=== PATIENT | male | born 1980 | race Caucasian/White ===

== ENCOUNTER 2017-04-25 10:25 | Emergency (ER) | payer BC ==
[~2017-04-25] VITALS: Ht 170.2 cm; Wt 77.1 kg
[~2017-04-25 10:25] MED LIST: AZITHROMYCIN250 MG PO; BACTRIM DS TAB1 EACH PO; CEPHALEXIN500 MG PO; CLARITIN10 MG PO; DAY-TIME COLD-1 EACH PO; ERYTHROMYCIN3.5 GM OD; GUAIFENESIN-CO118 ML PO; IBUPROFEN200 MG PO; IBUPROFEN600 MG PO; LOPRESSOR50 MG PO; MICONAZOLE NITR30 GM TOP; NORCO 5-325 TA1 EACH PO; NYQUIL D COLD295 ML PO; ONCE DAILY1 EACH PO; PERCOCET 5-3251 EACH PO; PRILOSEC20 MG PO
[2017-04-25] MEDS ORDERED: MULTIVITAMINS1 EAC7 PO (10:34)
[2017-04-25] MEDS ORDERED: PRILOSEC OTC20 MG PO (10:34)
[2017-04-25] MEDS ORDERED: ZITHROMAX250 MG PO (10:57)
[2017-04-25] MEDS ORDERED: KETOROLAC TROME10 MG PO (10:57)
== END 2017-04-25 11:05 | disposition home or self-care (01) ==
LOC: ED 10:25
PROC: 0R9L3ZX Drainage of Right Elbow Joint, Percutaneous Approach, Diagnostic (ICD-10-PCS; principal; 2017-04-25)
DX: M70.31 Other bursitis of elbow, right elbow (principal); F17.200 Nicotine dependence, unspecified, uncomplicated; Z79.899 Other long term (current) drug therapy
CPT/HCPCS: 20605; 99283

== ENCOUNTER 2017-04-26 08:40 | Emergency (ER) | payer BC ==
[~2017-04-26] VITALS: Ht 170.2 cm; Wt 77.1 kg
[~2017-04-26 08:40] MED LIST changes: +KETOROLAC TROME10 MG PO; +MULTIVITAMINS1 EAC7 PO; +PRILOSEC OTC20 MG PO; +ZITHROMAX250 MG PO
== END 2017-04-26 08:59 | disposition home or self-care (01) ==
LOC: ED 08:40
DX: Z00.8 Encounter for other general examination (principal)

== ENCOUNTER 2018-04-21 16:01 | Emergency (ER) | payer BC ==
[~2018-04-21 16:01] MED LIST changes: +NORCO 7.5-3251 EACH PO; +PENICILLIN V P500 MG PO
== END 2018-04-21 16:10 | disposition left against medical advice (07) ==
LOC: ED 16:01
DX: Z53.21 Procedure and treatment not carried out due to patient leaving prior to being seen by health care provider (principal)

== ENCOUNTER 2020-08-15 00:01 | Emergency (ER) | payer BC ==
[~2020-08-15] VITALS: Ht 170.2 cm; Wt 76.3 kg
--- OUTSIDE RECORDS SUMMARY | 2020-08-15 00:02 | XMS ---
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 Care History Medical/Surgical 04/25/2018 [facility] - Patient is currently established with [facility]. If patient is seen in the ED during business hours. Please contact CHWs at [facility]. Care Recommendation: This patient has had 5 or more Emergency Department visits in the last 12 months.\T\nbsp; Patient requires education on the scope and purpose of the ED as an acute care provider not a Primary Care Provider and should not be utilized for chronic conditions.\T\nbsp; These are guidelines and the provider should exercise clinical judgment when providing care. 03/28/2018 [facility] PATIENT GIVEN NORCO 7.5-325 #10 TABS FOR DENTAL PAIN 03/24/18.\T\nbsp; PATIENT STATES HE HAS DENTIST APPOINTMENT IN FOUR DAYS.\T\nbsp; USE CAUTION WITH NARCOTICS.\T\nbsp; E.D. VISIT COUNT (12 MO.) 1 CRISTI Archer TOTAL 1 NOTE: Visits indicate total known visits. ED/UCC VISIT TRACKING (12 MO.) 08/15/2020 00:01 CRISTI Calderon [place] TYPE: Emergency COMPLAINT: - EYE PROBLEM INPATIENT VISIT TRACKING (12 MO.) No inpatient visits to display in this time frame [email or web address]
[2020-08-15] MEDS ORDERED: NORCO 5-325 TA1 EACH PO (01:33)
== END 2020-08-15 02:00 | disposition home or self-care (01) ==
LOC: ED 00:01
DX: S05.02XA Injury of conjunctiva and corneal abrasion without foreign body, left eye, initial encounter (principal); X58.XXXA Exposure to other specified factors, initial encounter; F17.200 Nicotine dependence, unspecified, uncomplicated; Z79.899 Other long term (current) drug therapy
CPT/HCPCS: 99283

== ENCOUNTER 2020-11-26 18:07 | Emergency (ER) | payer OTHER, BC ==
[~2020-11-26] VITALS: Ht 170.2 cm; Wt 74.8 kg
--- OUTSIDE RECORDS SUMMARY | 2020-11-26 18:12 | XMS ---
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 Care History Medical/Surgical 04/25/2018 [facility] - Patient is currently established with [facility]. If patient is seen in the ED during business hours. Please contact CHWs at [facility]. Care Recommendation: This patient has had 5 or more Emergency Department visits in the last 12 months.\T\nbsp; Patient requires education on the scope and purpose of the ED as an acute care provider not a Primary Care Provider and should not be utilized for chronic conditions.\T\nbsp; These are guidelines and the provider should exercise clinical judgment when providing care. 03/28/2018 [facility] PATIENT GIVEN NORCO 7.5-325 #10 TABS FOR DENTAL PAIN 03/24/18.\T\nbsp; PATIENT STATES HE HAS DENTIST APPOINTMENT IN FOUR DAYS.\T\nbsp; USE CAUTION WITH NARCOTICS.\T\nbsp; E.D. VISIT COUNT (12 MO.) [address] [facility] TOTAL 2 NOTE: Visits indicate total known visits. 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
== END 2020-11-26 20:39 | disposition home or self-care (01) ==
LOC: ED 18:07
DX: S80.12XA Contusion of left lower leg, initial encounter (principal); Y99.0 Civilian activity done for income or pay; X58.XXXA Exposure to other specified factors, initial encounter; F17.200 Nicotine dependence, unspecified, uncomplicated
CPT/HCPCS: 99283

== ENCOUNTER 2021-12-08 07:09 | Emergency (ER) | payer OTHER, BC ==
[~2021-12-08] VITALS: Ht 170.2 cm; Wt 74.8 kg
--- OUTSIDE RECORDS SUMMARY | 2021-12-08 07:16 | XMS ---
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 Care History Medical/Surgical 04/25/2018 [facility] - Patient is currently established with [facility]. If patient is seen in the ED during business hours. Please contact CHWs at [facility]. Care Recommendation: This patient has had 5 or more Emergency Department visits in the last 12 months.\T\nbsp; Patient requires education on the scope and purpose of the ED as an acute care provider not a Primary Care Provider and should not be utilized for chronic conditions.\T\nbsp; These are guidelines and the provider should exercise clinical judgment when providing care. 03/28/2018 [facility] PATIENT GIVEN NORCO 7.5-325 #10 TABS FOR DENTAL PAIN 03/24/18.\T\nbsp; PATIENT STATES HE HAS DENTIST APPOINTMENT IN FOUR DAYS.\T\nbsp; USE CAUTION WITH NARCOTICS.\T\nbsp; E.D. VISIT COUNT (12 MO.) 1 CRISTI Archer TOTAL 1 NOTE: Visits indicate total known visits. ED/UCC VISIT TRACKING (12 MO.) 12/08/2021 07:10 CRISTI Calderon [place] TYPE: Emergency COMPLAINT: - L INDEX FINGER LACERATION/INJURY INPATIENT VISIT TRACKING (12 MO.) No inpatient visits to display in this time frame [email or web address]
[2021-12-08] MEDS ORDERED: LISINOPRIL10 MG PO (07:36)
[2021-12-08] MEDS ORDERED: OMEPRAZOLE20 MG PO (07:36)
== END 2021-12-08 08:40 | disposition home or self-care (01) ==
LOC: ED 07:09
DX: S61.211A Laceration without foreign body of left index finger without damage to nail, initial encounter (principal); Y99.0 Civilian activity done for income or pay; I10 Essential (primary) hypertension; F17.200 Nicotine dependence, unspecified, uncomplicated; Z79.899 Other long term (current) drug therapy
CPT/HCPCS: 12001; 99282-25

== ENCOUNTER 2022-10-10 13:53 | Inpatient (IN) | payer OTHER ==
[~2022-10-10] VITALS: Ht 170.2 cm; Wt 70.0 kg
[~2022-10-10 13:53] MED LIST changes: +LISINOPRIL10 MG PO; +PEPCID40 MG PO
--- OUTSIDE RECORDS SUMMARY | 2022-10-10 14:00 | XMS ---
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 Care History Medical/Surgical 04/25/2018 [facility] - Patient is currently established with [facility]. If patient is seen in the ED during business hours. Please contact CHWs at [facility]. Care Recommendation: This patient has had 5 or more Emergency Department visits in the last 12 months.\T\nbsp; Patient requires education on the scope and purpose of the ED as an acute care provider not a Primary Care Provider and should not be utilized for chronic conditions.\T\nbsp; These are guidelines and the provider should exercise clinical judgment when providing care. 03/28/2018 [facility] PATIENT GIVEN NORCO 7.5-325 #10 TABS FOR DENTAL PAIN 03/24/18.\T\nbsp; PATIENT STATES HE HAS DENTIST APPOINTMENT IN FOUR DAYS.\T\nbsp; USE CAUTION WITH NARCOTICS.\T\nbsp; E.D. VISIT COUNT (12 MO.) [address] [facility] TOTAL 2 NOTE: Visits indicate total known visits. ED/UCC VISIT TRACKING (12 MO.) 10/10/2022 13:53 CRISTI Calderon [place] TYPE: Emergency COMPLAINT: - ABDOMINAL PAIN 12/08/2021 07:10 CRISTI Calderon [place] TYPE: Emergency COMPLAINT: - L INDEX FINGER LACERATION/INJURY DIAGNOSES: - Other alf (current) drug therapy - Laceration without foreign body of left index finger without damage to nail, initial encounter - Nicotine dependence, unspecified, uncomplicated - Civilian activity done for income or pay - Essential (primary) hypertension INPATIENT VISIT TRACKING (12 MO.) No inpatient visits to display in this time frame [email or web address]
--- NOTE | 2022-10-10 22:08 | NUR ---
PT DIRECT ADMIT FROM ED. PT BROUGHT IN BY ED AMRIK WITH ED NURSE PRESENT. PT ABLE TO STAND AND TRANSFER TO ICU BED WITHOUT ASSISTANCE. FULL PT REPORT OBTAINED, AND TWO RN SKIN CHECK PERFORMED WITH JOE LEAL RN. PT RESTING COMFORTABLY AT THIS TIME. PT DENIES ANY PAIN, SOB, N/V, SIMEON, VISUAL OR AUDITORIAL HALLUCINATIONS, OR ANY ABNORMAL SENSATIONS. V/S ASSESSED, ALARM LIMITS SET, BED ALARM TURNED ON AND NURSE CALL LIGHT LEFT BY PTS SIDE.
--- NOTE | 2022-10-10 22:10 | EKG ---
[facility] [address] [place] [address] Signed Sinus tachycardia Left axis deviation Inferior infarct , age undetermined Cannot rule out Anterior infarct , age undetermined Abnormal ECG No previous ECGs available Confirmed by Pepito uMrray MD () on 10/10/2022 10:10:12 PM Electronically Signed By: PEPITO MURRAY MD 10/10/222209 PATIENT NAME: HERNAN GONSALES Electrocardiogram DATE OF : 76 PHYSICIAN: PEPITO MURRAY MD REPORT #: [id number] REPORT IS CONFIDENTIAL AND NOT TO BE RELEASED WITHOUT AUTHORIZATION
--- NOTE | 2022-10-11 06:59 | NUR ---
PT REMAINS AWAKE, ALERT AND ORIENTED WITH A GCS OF 15. PT FOLLOWS COMMANDS AND MOVES ALL FOUR EXTREMITIES WITH PURPOSE. PT HAS BEEN IN A NSR, NORMOTENSIVE AND A-FEBRILE THROUGHOUT THE SHIFT. PT CONTINUES TO SCORE LOW ON CIWA. PT WITH R. SIDED ABDOMENAL PAIN, SCORING AN 8 OUT OF 10. PRN MEDICATION ADMINISTERED FOR PAIN AND ANXIETY. LABS: AST/ALT CONTINUE TO BE ELEVATED. LIPASE 41. CA19-9 PENDING.
--- NOTE | 2022-10-11 07:50 | NUR ---
REPORT RECEIVED FROM NIGHT RN - PT RESTING IN BED ON SIDE, RR EVEN AND UNLABORED. VS STABLE ON MONITOR. CALL LIGHT IN REACH.
--- NOTE | 2022-10-11 08:25 | NUR ---
0800 vs stable - pt remains asleep in bed. call light at side.
--- NOTE | 2022-10-11 08:57 | NUR ---
RN IN ROOM TO ATTEND TO IV ALARM. PT WAKES EASILY, BUT DROWSY. DENIES NEEDS AT THIS TIME.
--- NOTE | 2022-10-11 09:15 | NUR ---
Spoke with Enmanuel. He states he lives in [place] with his , 2 kids, and mother in law. is Rebecca Jiang. Pt states concern as he is on a 2 month lay off from [employer]. Today would have been his first day back to work. He states he father recently and he has been very depressed and has lost 20 pounds. He states he has not sought counseling for his depression, but did in the past for his alcohol dependence. I asked if he would like assistance with alcohol or depression. He declines at this time and states he cannot at this time. He does say his anxiety is through the roof and his mom causes a scene last night which worsened his anxiety. Dr. Correa was in the room when I arrived and stated pt will be here at least another day. Pt is jaundiced. Discussed with pt, I will see him tomorrow. If at any time he wants help with alcohol dependence, depression, or anxiety I can help him with resources. Pt plans on dc to home with his and family when he discharges.
--- NOTE | 2022-10-11 09:25 | NUR ---
SURGEON AND CASE MANAGMENT ROUNDING IN ROOM
--- NOTE | 2022-10-11 10:16 | NUR ---
RN IN ROOM TO ASSESS PT - PT REQUESTS TO AMBULATE TO BATHROOM TO VOID, STEADY ON FEET BUT TREMOR NOTED IN UPPER EXTREMETIES WITH DIAPHORESIS AND HEADACHE. CIWA SCORE OF 9, PRN VALIUM ADMINISTERED FOR THIS. PT ALSO REPORTS 8/10 PAIN IN RIGHT UPPER QUADRANT, PRN PAIN MEDICATION ALSO ADMINISTERED. URINE NOTED TO BE ORANGE AND FROTHY, SKIN REMAINS JAUNDICE. PT EDUCATED ON ETOH WITHDRAWL SX AND MEDICATIONS TO PREVENT HARM. PT MOTIVATED TO IMPROVE HEALTH. TEARFUL WHEN TALKING ABOUT FATHER WHO RECENTLY PASSED. CONSENT FOR EGD SIGNED AND PLACED ON CHART.
--- NOTE | 2022-10-11 11:19 | NUR ---
RN IN ROOM TO ROUND ON PT - RESTING IN BED WATCHING TV WITHOUT SIGNS OF DISTRESS, NO VISIBLE TREMORS NOTED AND VOICE CALM AND COHERANT. PT DENIES NEEDS AT THIS TIME. STATES PAIN IS IMPROVED.
--- NOTE | 2022-10-11 11:55 | NUR ---
RN IN ROOM TO ROUND ON PT - PT REPORTS BEING ANXIOUS ABOUT PROCEDURE LATER TODAY. CIWA SCORE IMPROVED, HOWEVER SELF REPORT OF ANXIETY REMAINS HIGH. PRN ATIVAN ADMINISTERED. PT DENIES FURTHER NEEDS. CALL LIGHT IN REACH.
--- NOTE | 2022-10-11 12:54 | NUR ---
PT RESTING WITH EYES CLOSED IN BED, RR EVEN AND UNLABORED. VS WNL ON MONITOR. CALL LIGHT AT SIDE.
--- NOTE | 2022-10-11 14:28 | NUR ---
RN IN ROOM TO ROUND ON PT - PT REPORTING 9/10 PAIN AND SEVERE ANXIETY. PRN ADMINITERED FOR BOTH, CIWA SCORE 9. VS REMAIN WNL. ASSESSMENT UNCHANGED FROM PREVIOUS. CONTINUED CONVERSATION AND EDUCATION WITH PT REGARDING ETOH WITHDRAWL AND RECOVERY. PT TEARFUL AND EXPRESSESS STRONG DESIRE TO STOP DRINKING. 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
--- NOTE | 2022-10-11 15:47 | NUR ---
Pt visiting with family at bedside.
--- NOTE | 2022-10-11 16:38 | NUR ---
PT BACK TO ROOM FROM OR - OR STAFF IN ROOM RECOVERING PT.
--- NOTE | 2022-10-11 17:01 | NUR ---
10/11/22 1701 Rebecca Goodwin 1630 PT ARRIVED IN PACU NON RESPONSIVE TO NOXIOUS STIMULI WITH OPA IN PLACE. 4 PERSON ASSIST TO TRANSFER PT FROM STRETCHER TO BED WITH CHIN LIFT HELD BY RN. 1645 REPOSITIONED PT TO KEEP AIRWAY OPEN WITH OPA. NO RESPONSE TO NOXIOUS STIMULI. 1700 NO CHANGE IN PT STATUS.
--- NOTE | 2022-10-11 17:23 | NUR ---
medications reconciled PCP chart notes
--- NOTE | 2022-10-11 17:25 | NUR ---
RESUMING CARE OF PT - RESTING IN BED ON BACK WITH HOB ELEVATED. SPO2 STABLE ON ROOM AIR. RR 22 AND UNLABORED. DOOR OPEN AND IN DIRECT SITE OF RN STATION.
--- NOTE | 2022-10-11 18:02 | NUR ---
PT REMAINS RESTING IN BED ASLEEP, HOB ELEVATED. NO SIGNS OF RESPIRATORY DISTRESS, VS WNL ON MONITOR. WITHIN DIRECT VIEW OF RN STATION.
--- NOTE | 2022-10-12 00:56 | NUR ---
CALLED WITH EKG RESULTS AFTER RHYTHM CHANGE ON MONITOR, ALSO BRADYCARDIA 50-60/MIN. CONTINUE TO MONITOR. NO NEW ORDERS AT THIS TIME.
--- NOTE | 2022-10-12 06:55 | NUR ---
PT REMAINS AWAKE, ALERT AND ORIENTED WITH A GCS OF 15. PT MOVES ALL FOUR EXTREMITIES, CMS INTACT X 4. PT HAS BEEN IN A NSR TO SB, NORMOTENSIVE AND A-FEBRILE. LS CLEAR, PT REMAINS ON RA. PT CONTINUES TO HAVE R. SIDED ABDOMINAL PAIN IN THE UPPER AND LOWER QUADRANT. PT REQUIRED MULTIPLE PRNS FOR PAIN MANAGEMENT. PT WITH INCREASED LEVELS OF ANXIETY THROUGHOUT THE NIGHT. PRN ATIVAN ADMINISTERED WITH IMPROVEMENT. CIWA NOTED TO BE ELEVATED AROUND 0600. PRN DIAZEPAM ADMINSTERED. LABS: PLT COUNT LOW AT 97. ALT/AST IMPROVED. TOTAL BILI RAISED TO 11.2.
--- NOTE | 2022-10-12 07:30 | NUR ---
REPORT RECIEVED. PATIENT IS AWAKE LAYING IN BED WATCHING TV. IVF INFUSING.
--- NOTE | 2022-10-12 08:00 | NUR ---
ASSESSMENT DONE. PATIENT C/O HEADACHE,RIGHT SIDE ABD PAIN, WITH DIFFUSE ABD DISCOMFORT WITH PALPATION. HAS BEEN NPO SINCE MIDNIGHT. ORAL CARE GIVEN. DENIES NAUSEA. DILAUDID 1 MG IV GIVEN FOR PAIN 10, ATIVAN 1 MG IV GIVEN FOR ANXIETY. PATIENT IS COOPERATIVE AND AWAKE OF POC FOR THE DAY.
--- NOTE | 2022-10-12 10:39 | OR ---
[facility] [address] [place], [place] [address] Signed DATE OF OPERATION: 10/11/2022 SURGEON: Carlos Navas MD PREOPERATIVE DIAGNOSES: 1. Jaundice without evidence of gallstones or dilated common bile duct. 2. Thickening of the gallbladder. 3. Chronic alcoholism. POSTOPERATIVE DIAGNOSES: Diffuse gastritis. No evidence of ampullary neoplasm. PROCEDURE: Esophagogastroduodenoscopy with biopsy. ANESTHESIA: Carlos Hurt CRNA (General). INDICATIONS: This 41-year-old man presented to the emergency room yesterday with diffuse abdominal pain and a deep jaundice with bilirubin greater than 9 and alkaline phosphatase quite elevated as well. He has chronic alcoholism and does have a prior history of alcohol withdrawal syndrome apparently. He was admitted by Dr. Negro for further evaluation as a CT scan initially performed showed thickening of the gallbladder wall, but no sign of intrahepatic ductal dilatation. There was no evidence of pancreatic neoplasm nor any sign of double duct sign. An ultrasound was performed showing no evidence of gallstones nor common duct dilation either. His liver enzymes are only slightly improved today, now bilirubin to 7, alkaline phosphatase too decreased as well. He remains deeply jaundiced as would be expected. Consideration is made for the possibility of an ampullary neoplasm accounting for his obstructive jaundice as he does not have profound abdominal pain, though consideration for chronic cholecystitis and biliary obstruction related to stone or debris is still a possibility. He understands the risks of bleeding, infection, perforation related upper endoscopy and wished to proceed. FINDINGS: There was no ampulla that had neoplasm. A very tiny ampulla was noted. There was no sign of duodenitis. He did have diffuse gastritis, probably related to his ongoing alcohol use. CLOtest was negative. Esophagus was normal. There were no varices. DESCRIPTION OF PROCEDURE: Electronically Signed By: CARLOS NAVAS MD 10/12/22 1039 PATIENT NAME: HERNAN GONSALES OPERATIVE REPORT DATE OF : 76 REPORT #: [id number] PHYSICIAN: CARLOS NAVAS MD PCP: MICK JEFFERSON MD REPORT IS CONFIDENTIAL AND NOT TO BE RELEASED WITHOUT AUTHORIZATION [facility] [address] [place], [place] [address] Signed The patient was brought to the endoscopy suite, given a general endotracheal anesthetic, after the discretion of the anesthesia provider based on his underlying alcoholism and anxiety prior to the procedure. A safe intubation was accomplished without problem. A bite block was placed. He was allowed to remain in the supine position. An Olympus video upper endoscope was passed in the hypopharynx. The hypopharyngeal tissue was normal. Scope was easily passed in the esophagus, which was normal throughout. The scope was passed to the stomach, which was insufflated with air. Rugal folds appeared normal. He had diffuse gastritis without sign of ulceration or erosion. The pylorus was normal. Scope was passed into the duodenum. Multiple passes were made throughout the 2nd and 3rd portions of the duodenum to assess for neoplastic change of the ampulla. Mindful that this is a forward-looking scope rather than a side-viewing J scope, some difficulty was encountered actually locating the ampulla, but ultimately it appeared quite small in configuration. The scope was then withdrawn from the stomach. Biopsies were taken of the stomach on the basis of his chronic gastritis. This included a CLOtest. Retroflexed view showed a reasonably good flap valve. The scope was withdrawn to the esophagus. There was no sign of inflammation there. There were no varices throughout any portion of the esophagus. The scope was removed. CONCLUDING DIAGNOSIS: No evidence of ampullary neoplasm to account for his jaundice in the setting of minimal pain and lack of common bile duct dilation. PLAN: We will review with Dr. Negro, however, he may yet require cholecystectomy with cholangiogram. I reviewed the films available, which include CT scan and ultrasound, when and if a radiologist is available to do so in the current area. MD SHRADDHA Ga/MODL /[id number] cc: MD PEPITO Scott MD Electronically Signed By: CARLOS NAVAS MD 10/12/22 1039 PATIENT NAME: HERNAN GONSALES OPERATIVE REPORT DATE OF : 76 REPORT #: [id number] PHYSICIAN: CARLOS NAVAS MD PCP: MICK JEFFERSON MD REPORT IS CONFIDENTIAL AND NOT TO BE RELEASED WITHOUT AUTHORIZATION [facility] [address] [place] [address] Signed Copies: ~ Electronically Signed By: CARLOS NAVAS MD 10/12/22 1039 PATIENT NAME: HERNAN GONSALES OPERATIVE REPORT DATE OF : [birth year] REPORT #: [id number] PHYSICIAN: CARLOS NAVAS MD PCP: MICK JEFFERSON MD REPORT IS CONFIDENTIAL AND NOT TO BE RELEASED WITHOUT AUTHORIZATION
--- NOTE | 2022-10-12 10:40 | NUR ---
CWIA 10, VALIUM 5 MG IV GIVEN.
--- NOTE | 2022-10-12 12:15 | NUR ---
ASSESSMENT UNCHANGED. TO BR TO VOID, WITH ACTIVITY, HR UP 140. DENEIS DIZZINESS. BACK TO BED W/O INCIDENT. IS STABLE ON FEET.
--- NOTE | 2022-10-12 12:20 | NUR ---
REMAINS ANXIOUS AND PAINFUL. RATES PAIN 8/10. DILAUDID 1 MG IV GIVEN FOLLOWED BY ATIVAN 1 MG. WILL HAVE MRI TODAY AT 1 PM TODAY. PATIENT IS AWARE.
--- NOTE | 2022-10-12 13:00 | NUR ---
VALIUM 5 MG IV GIVEN PRIOR TO GOING TO MRI.
--- NOTE | 2022-10-12 13:05 | NUR ---
TO MRI VIA WC.
--- NOTE | 2022-10-12 14:10 | NUR ---
RETURN TO ROOM 128 VIA W/C FROM MRI. PATIENT VERY TENSE, C/O PAIN RATES 9/10. DILAUDID 1 MG IV GIVEN. TELE #6 APPLIED. CONTINUES WITH TACHYCARDIA UPON EXERTION. IVF NOW INFUSING.
--- NOTE | 2022-10-12 15:45 | NUR ---
DR. MURRAY AND DR. NAVAS'S OFFICE AWARE MRI RESULTS ARE BACK.
--- NOTE | 2022-10-12 18:07 | NUR ---
OKAY TO GIVE CLEAR LIQUIDS PER DR. NAVAS'S ORDER.
--- NOTE | 2022-10-12 20:00 | NUR ---
PT ASSESSED, AND V/S OBTAINED. PT IS A&O X 4 WITH A GCS OF 15. PT FOLLOWS COMMANDS APPROPRIATELY. PT MOVES ALL EXTREMITIES, CMS INTACT X 4. CIWA ASSESSED. PT NOTED TO BE ANXIOUS. NURSE CALL LIGHT AT BEDSIDE. PT WITH NO NEEDS OR CONCERNS AT THIS TIME.
--- NOTE | 2022-10-12 20:49 | CONS ---
[facility] [address], [place] [address] Signed DATE OF CONSULTATION: 10/10/2022 TIME: 10:45 p.m. REQUESTING PHYSICIAN: Dr. Negro. PROBLEM: Relatively painless jaundice. HISTORY: This 41-year-old white man presented to the emergency room this evening and was evaluated by Dr. Joya. He was first seen at 3:43 p.m. He has long-standing alcoholism, taking at least a six-pack of beer daily, sometimes more, and has had alcohol withdrawal syndrome in the past. He presented according to notes with abdominal pain, nausea, and vomiting and the onset of jaundice. His symptoms have been going on most acutely for the past three days, so he has had symptoms more or less for 2 weeks. He has had abdominal pain, generalized, but mostly on the right side for many months. His underlying medical problems include gastroesophageal reflux as well as lisinopril. The patient has been off work for about 8 weeks; his father recently (a month ago or more with "stomach cancer"). When pressed as to the etiology, he admits it could have been liver and/or pancreatic cancer. He is unsure. 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 He is and has 2 children, ages 20 and 16. His evaluation in the emergency room included chem profile as well as CBC. His alkaline phosphatase is 581, bilirubin total is 9.4, ALT is 181, AST 297. His white count is normal at 4.0, hematocrit 38.2, and platelets . CT scan was performed, showed nonspecific gallbladder wall thickening and I have reviewed this and affirmed this. He had no evidence of gallstones nor intrahepatic ductal dilatation. A gallbladder ultrasound was subsequently performed confirming no evidence of gallstones and no dilated common bile duct. Pro-time is normal and ammonia level is normal as well. The patient has been admitted to the intensive care unit as alcohol withdrawal syndrome and its management will be a dominant feature in the short term. REVIEW OF SYSTEMS: He denies any dysphagia or hematemesis. He has had no shortness of breath. He does admit to weight loss over the past several weeks. PHYSICAL EXAMINATION: Electronically Signed By: CARLOS NAVAS MD 10/12/22 2049 PATIENT NAME: HERNAN GONSALES CONSULTATION DATE OF : 76 REPORT #: [id number] PHYSICIAN: CARLOS NAVAS MD PCP: MICK JEFFERSON MD REPORT IS CONFIDENTIAL AND NOT TO BE RELEASED WITHOUT AUTHORIZATION [facility] [address], [place] [address] Signed GENERAL: This is a pleasant white man, who does not appear delirious, so is mildly anxious. VITAL SIGNS: Show a temperature 97.1, pulse 89, blood pressure 135/81. HEENT: His sclerae are deeply icteric. Trachea is midline. He has no hoarseness. He has a bit of an underbite related to prior jaw surgery. CHEST: Shows normal respiratory excursion. Pulses regular. ABDOMEN: Nondistended and soft. He has no ascites. There is really no particular tenderness or mass I detect at this time. EXTREMITIES: Show no clubbing, cyanosis, or edema. LABORATORY DATA: As previously noted and COVID serology is negative. Urinalysis shows elevated bilirubin as would be expected. INR is 1.07. Toxicology shows alcohol level 136 mg/dL. ASSESSMENT: The patient did complain of abdominal pain, but mostly that of jaundice and he does not appear to have much if any tenderness on palpation. Concern is always maintained for possibility of pancreatic neoplasm. Strangely, he does not have common duct dilation, though he does have markedly elevated alkaline phosphatase and bilirubin. I see no evidence of "double duct sign" on the CT scan, which is highly concerning when present for neoplastic disease of the ampulla or pancreatic head itself. He does not have gallstones of the gallbladder, does appear thickened. Of course, the differential includes obstructed bile duct related to cholelithiasis even if not visualized, but importantly also the possibility of ampullary neoplasm or even pancreatic head neoplasm. The pancreas was identified as normal without evidence of mass or ductal dilatation. PLAN: Agree with plan for IV fluids and monitoring and treatment of potential alcohol withdrawal. A CA 19-9 may be beneficial (though it can be elevated in nonmalignant disease). An ampullary neoplasm may account for his situation as well, which would not be well visualized on CT scan or ultrasound. On that basis, endoscopic evaluation may be a consideration prior to considering for a cholecystectomy, cholangiogram, etc. I will review these things with Dr. Negro as well. Though it shows no evidence of toxicity, I absolutely agree that Ancef IV intravenously administered would be appropriate on the basis of his jaundice whatever its underlying etiology. Carlos Navas MD Electronically Signed By: CARLOS NAVAS MD 10/12/229 PATIENT NAME: HERNAN GONSALES CONSULTATION DATE OF : 76 REPORT #: [id number] PHYSICIAN: CARLOS NAVAS MD PCP: MICK JEFFERSON MD REPORT IS CONFIDENTIAL AND NOT TO BE RELEASED WITHOUT AUTHORIZATION [facility] [address] [place] [address] Signed /ROBERTO /[id number] cc: Dr. Toan Negro Copies: ~ Electronically Signed By: CARLOS NAVAS MD 10/12/22 2049 PATIENT NAME: HERNAN GONSALES CONSULTATION DATE OF : 76 REPORT #: [id number] PHYSICIAN: CARLOS NAVAS MD PCP: MICK JEFFERSON MD REPORT IS CONFIDENTIAL AND NOT TO BE RELEASED WITHOUT AUTHORIZATION
--- NOTE | 2022-10-12 21:48 | EKG ---
[facility] [address] [place] [address] Signed Unusual P axis, possible ectopic atrial rhythm Abnormal ECG When compared with ECG of 10-OCT-2022 14:14, Ectopic atrial rhythm has replaced Sinus rhythm Vent. rate has decreased BY 59 BPM Criteria for Inferior infarct are no longer present ST no longer elevated in Anterior leads Confirmed by Pepito Murray MD () on 10/12/2022 9:47:52 PM Electronically Signed By: PEPITO MURRAY MD 10/12/22 2148 PATIENT NAME: HERNAN GONSALES Electrocardiogram DATE OF : 76 PHYSICIAN: PEPITO MURRAY MD REPORT #: [id number] REPORT IS CONFIDENTIAL AND NOT TO BE RELEASED WITHOUT AUTHORIZATION
--- NOTE | 2022-10-13 | NUR ---
PT ASSESSED AND V/S OBTAINED. PT IS RESTING COMFORTABLY IN BED WITH NO COMPLAINTS AT THIS TIME.
--- NOTE | 2022-10-13 06:56 | NUR ---
PT REMAINS AWAKE, ALERT AND ORIENTED X 4 WITH A GCS OF 15. PT CONTINUES TO FOLLOW COMMANDS APPROPRIATELY. PT MOVES ALL FOUR EXTREMITIES WITH PURPOSE, CMS X 4 INTACT. PT HAS HAD A REGULAR HR, NORMOTENSIVE AND A-FEBRILE THROUGHOUT THE NIGHT. PT ABLE TO VOID ON HIS OWN WITH MULTIPLE EPISODES THROUGHOUT THE NIGHT. PT REMAINS ON RA WITH NON-LABORED RESPIRATIONS. SURGICAL MD CALLED TO REQUEST CHANGE IN HIDA SCAN TO CCK HIDA SCAN. NUCLEAR TECH MADE AWARE. LABS: CHEM UNREMARKABLE, CBC WITH WBC 3.4, AND PLT 104. LIVER ENZYMES IMPROVING. TOT. BILI. CONTINUES TO RISE, NOW AT 12.4.
--- NOTE | 2022-10-13 07:35 | NUR ---
REPORT RECIEVED. PATIENT WILL BE TRANSFERRED TO ROOM 111 ON MED-SURG THIS MORNING.
--- NOTE | 2022-10-13 07:45 | NUR ---
VITALS CHARTED. PATIENT JUST WAKING UP AND WILL BE MOVED TO THE MEDICAL FLOOR VIA CHAIR.PERSONAL ITEMS TAKEN TO NEW ROOM BY YIFAN ROCHA.
--- NOTE | 2022-10-13 07:50 | NUR ---
REPORT TO MED-SURG. TO MED-SURG VIA VIA CHAIR. VITAL SIGNS COMPLETED BY [employer] ARCHITECT.
--- NOTE | 2022-10-13 08:04 | NUR ---
PT TRANSFERED FROM CCU TO TX VIA CHAIR - PT CIWA SCORE CURRENTLY 12 ON ASSESSMENT, VALIUM ADMINISTERED. PT AWARE OF SCAN LATER THIS AM, ALL QUESTIONS ANSWERED, UNDERSTANDS HE CAN NOT HAVE PAIN MEDICATION OR ANYTHING BY MOUTH UNTIL AFTER SCAN. PT CURRENTLY SITTING UP IN CHAIR, HAS CALL LIGHT AT SIDE. VSS.
--- NOTE | 2022-10-13 08:45 | NUR ---
RN ROUNDING ON PT - STATES ANXIETY IMPROVED WITH PRN VALUIM. PT UP TO BATHROOM TO VOID, STEADY ON FEET.
--- NOTE | 2022-10-13 09:30 | NUR ---
RN IN ROOM TO ASSESSS PT - PT REPORTS ANXIETY IS BETTER BUT IS FEELING INCRESING AGGITATION. PRN ATIVAN ADMINISTERED. IV SITE PATENT AND IV FLUIDS INFUSING. PT SITTING IN CHAIR, CALL LIGHT AT SIDE. PT AGAIN ASKS ABOUT BEING DC'D WITH "WITHDRAWL MEDS" - PT EDUCATION AND ENCOURAGED TO CONTINUE TO ADVOCATE FOR SELF. WILL UPDATE CASE MANAGMENT.
--- NOTE | 2022-10-13 10:27 | NUR ---
RN IN ROOM TO PREP FOR SCAN - PT EXTREMLY ANXIOUS AND STUDY IS APPROX 1.5 HOURS LONG - PRN VALIUM ADMINSTERED. TREMORS, HEADACHE AND SELF REPORTED ANXIETY AND AGGITATION. PT STRONGLY ENCOURAGED TO INFORM IMAGING STAFF OF NEED FOR ADDITIONAL MEDICATION DURING STUDY IF NEEDED.
--- NOTE | 2022-10-13 12:16 | NUR ---
DR. NAVAS CALLED TO OBTAIN ORDER FOR 2MG MORPHINE IV PUSH ONCE PER NADIA IN NUC MED PER RADIOLOGIST TO ASSIST IN SCAN. TELEPHONE ORDER PLACED. THIS RN TO [facility]UC [facility] TO ADMINISTER. PT ANXIOUS BUT APPEARS TO BE ABLE TO COMPLETE STUDY.
--- NOTE | 2022-10-13 14:46 | NUR ---
RN IN ROOM TO ASSESS PT - PT NOW BACK FROM NUC MED STUDY. RATES PAIN 9/10 IN THE RIGHT UPPER QUAD, PRN DILAUDID ADMINISTERD. PT REPORTS ANXIETY BUT DOES NOT SHOW OTHER S/S OF ETOH WITHDRAWL, PRN ATIVAN ADMINISTERED. PT TOLERATING CLEAR LIQS AT THIS TIME, NO NAUSEA. OTHERWISE ASSESSMENT UNCHANGED. CALL LIGHT IN REACH.
--- NOTE | 2022-10-13 16:00 | NUR ---
pt significant other updated on plan of care and results of study today. States understanding. Encouraged conversation with pt regarding [facility] as resource for staying sober, medications and counceling. FMLA paperwork also given back to her with explanation of PCP needing to complete per case managment instruction. PCP office called by rewards consultant to facilitate sooner follow up if possible.
--- NOTE | 2022-10-13 17:17 | NUR ---
Notified by Jess Perez, pt would like to speak with [facility] tomorrow. Called Rabia at [facility] and she will try to visit near 10:00 tomorrow. She states if he needs an earlier visit, call and they will send a different Peer.
--- NOTE | 2022-10-13 17:56 | NUR ---
PRN PAIN MEDICATION ADMINISTERED FOR 8/10 RIGHT SIDE PAIN. PT STATES IT WORSENED WHEN TRYING TO HAVE BM ON TOILET EARLIER, "CRAMPING". PT TOLERAING CLEAR LIQUIDS WITHOUT NAUSEA. PT NOT NEEDING PRN FOR ETOH WITHDRAWL AT THIS TIME. PT IN GOOD SPIRITS AND DISCUSSING MOTIVATION FOR STAYING SOBER - FISHING WITH FAMILY.
--- NOTE | 2022-10-13 19:27 | NUR ---
SHIFT REPORT RECEIVED FROM SOLEDAD BUTT AT BEDSIDE, pt AWAKE AND INTERACTIVE WITH CRM SPECIALIST. APPRECIATIVE OF CARES, CALL LIGHT IN REACH. IV SITE WNL, NEW BAG IV FLUIDS HUNG AND INFUSING DIRECTED. DISCUSSED POC WITH pt. BOARD UPDATED.
--- NOTE | 2022-10-13 21:40 | NUR ---
ASSESSMENT COMPLETE, pt AWAKE AND RESTING IN BED. pt MEDICATED EARLIER IN SHIFT WITH PRN PAIN MEDICATION-SEE EMAR. CIWA SCORE OF 8, PRN VALIUM GIVEN IV, SEE EMAR. NO DISTRESS BUT VISIBLE TREMORS NOTED AND pt REPORTS MILD HEADACHE. pt SOMEWHAT RESTLESS IN BED. pt INTERACTIVE WITH CT SCAN TECH, DISCUSSED POC WITH pt. NO ADDITIONAL NEEDS, CALL LIGHT IN REACH.
--- NOTE | 2022-10-13 22:16 | NUR ---
NEW IV STARTED IN PATIENTS RIGHT FOREARM. PATIENT TOLERATED ACTIVITY WELL. PATIENTS IV INFUSING PER ORDER. NO FURTHER NEEDS NOTED. CALL LIGHT IN REACH.
--- NOTE | 2022-10-13 22:40 | NUR ---
rounded on pt, pt awake and resting in bed. no distress noted. on ra, rr even and unlabored. iv site x2 wnl, iv fluids infusing as directed. pt enjoying ice chips. denies needs or concerns, vss. call light in reach.
--- NOTE | 2022-10-14 00:12 | NUR ---
ROUNDED ON pt, pt RESTING IN BED WITH EYES CLOSED. ON RA, RR EVEN AND UNLABORED. NO DISTRESS NOTED, SPO2 98%, HR IN THE 70'S. pt APPEARS CALM AND RELAXED, NO OUTWARDS SIGNS OF PAIN OR WITHDRAWL NOTED. CALL LIGHT IN REACH.
--- NOTE | 2022-10-14 01:13 | NUR ---
ROUNDED ON pt, pt RESTING QUIETLY IN BED. ON RA, RR EVEN AND UNLABORED. NO DISTRESS NOTED, SPO2 UPPER 90'S, HR 71, RR 16, BP 114/75 (82). IV SITE WNL, FLUIDS INFUSING DIRECTED. pt DENIES NEEDS OR CONCERNS. NO S/SX OF WITHDRAWL NOTED AT THIS TIME. WILL ALLOW THE pt TO CONTINUE TO REST AND MONITOR FOR CHANGES. URINAL ALSO EMPTIED. CALL LIGHT IN REACH.
--- NOTE | 2022-10-14 02:25 | NUR ---
call light answered, prn ativan given for reported anxiety-see emar. iv site wnl, fluids cont to infuse as directed. urinal also emptied, no additional needs or concerns verbalized. call light in reach.
--- NOTE | 2022-10-14 04:04 | NUR ---
call light answered, prn valium given for ciwa score of 9, pt awake and rocking self in bed, sweaty and reports mild headache. vss and pt remains npo, will monitor. call light in reach. bp 105/82-map of 86, 98% on ra, hr 109-115.
--- NOTE | 2022-10-14 04:37 | NUR ---
ROUNDED ON pt FOLLOWING ADMINISTRATION OF PRN VALIUM-SEE PREVIOUS RN NOTE. pt RESTING IN BED WITH EYES CLOSED. ON RA, RR EVEN AND UNLABORED. NO DISTRESS NOTED. CALL LIGHT IN REACH.
--- NOTE | 2022-10-14 06:08 | NUR ---
pt AWAKE AND RESTING IN BED, ANXIOUS IN APPEARANCE. PRN ATIVAN PROVIDED-SEE EMAR. 1MG IV GIVEN, MED AND DOSE VERIFIED WITH SECOND RN ELIJAH. VSS, HR SOMEWHAT TACHY. IV SITES X2 WNL, IV FLUIDS INFUSING DIRECTED. CALL LIGHT IN REACH, pt INSTRUCTED TO USE CALL LIGHT IF ANXIETY DOES NOT IMPROVE, pt VERBALIZED UNDERSTANDING. CALL LIGHT IN REACH.
--- NOTE | 2022-10-14 06:12 | NUR ---
pt SLEPT INTERMITTENTLY THROUGHOUT THE NIGHT, CALLS APPROPRIATELY. INDEPENDENT IN ROOM, IV FLUIDS DIRECTED. pt NPO SINCE MIDNIGHT, NO NAUSEA REPORTED, X1 PRN PAIN MEDICATION PROVIDED. pt ON CIWA PROTOCOL, PRN VALIUM AND ATIVAN PROVDIED THROUGHOUT SHIFT-SEE EMAR. pt PLEASANT AND MAKES NEEDS KNOWN REGARDING WITHDRAWL, HIGHEST CIWA SCORE OF 9 DURING THIS SHIFT. VSS, pt ON RA.
--- NOTE | 2022-10-14 07:59 | NUR ---
RECIEVED SHIFT REPORT. PT RESTING IN BED, EYES CLOSED, BREATHING EVEN AND UNLABORED. CALL LIGHT WITHIN REACH.
--- NOTE | 2022-10-14 08:58 | NUR ---
MORNING ASSESSMENT COMPLETE. PT COMPLAINS OF PAIN 9/10, RIGHT ABD. STATES NAUSEA "COMES AND GOES", AND IS TOLERABLE. CIWA 9, PRN VALIUM AND PAIN MEDICATION ADMINISTERED. DENIES FURTHER NEEDS AT THIS TIME. CALL LIGHT WITHIN REACH.
--- NOTE | 2022-10-14 09:32 | NUR ---
MORNING ASSESSMENT COMPLETE. PATIENT RATED PAIN AT 9/10. ADMINISTERED ATIVAN AND PAIN MEDICATION. CIWA 9. PATIENT DECLINES ANY FURTHER NEEDS AT THIS TIME.
--- NOTE | 2022-10-14 11:33 | NUR ---
LESTER IN TALKING WITH PT.
--- NOTE | 2022-10-14 15:30 | NUR ---
PT TOLERATED MEAL, DENIES NAUSEA. PAIN 8/10, PRN MEDICATION (PER EMAR). REORIENTED TO NEW PRN PAIN MEDICATION SCHEDULE. CALL LIGHT WITHIN REACH. DENIES FURTHER NEEDS.
--- NOTE | 2022-10-14 17:04 | NUR ---
IN ROOM TO ASSESS CIWA. PT IS RESTING IN BED, FAMILY AT BEDSIDE. PT STATES PAIN IS "BETTER", BUT CONTIUNES TO RATE IT 8/10. CIWA-3. PT CONTINUES TO ASK WHEN PRN PAIN MEDICATION IS DUE, PT REMINDED OF THE PRN SCHEDULE. CALL LIGHT WITHIN REACH
--- NOTE | 2022-10-14 17:32 | PATH ---
[facility] [address] [place], [place] [address] Signed SPECIMEN(S): A ANTRUM/PYLORUS BIOPSY SPECIMEN SOURCE: A. ANTRUM/PYLORUS BIOPSY CLINICAL HISTORY: Hepatitis, jaundice. Postop: Diffuse gastritis. FINAL PATHOLOGIC DIAGNOSIS: Stomach, antrum/pylorus, biopsy: - No significant histopathologic alterations. COMMENT: The sections through the gastric biopsies show fragments of histologically unremarkable oxyntic mucosa. There is no evidence of acute or chronic inflammation. There is no evidence of H. pylori, intestinal metaplasia, abnormal infiltrates or neoplasia. TWK:cml:C2NR MICROSCOPIC EXAMINATION: Histologic sections of all submitted blocks are examined by light microscopy. These findings, together with the gross examination, support the pathologic diagnosis. GROSS DESCRIPTION: The specimen, labeled and designated "Black, antrum/pylorus biopsy," is received in formalin and consists of one momin soft tissue fragment, 0.6 cm. Entirely submitted in (A1). VB (under the direct supervision of a pathologist) The Gross Description was prepared using a voice recognition system. The report was reviewed for accuracy; however, sound-alike word errors, addition and/or deletions may occur. If there is any question about this report, please contact Client Services. PERFORMING LABORATORY: The technical component was performed by [facility], [address] [place] [id number] (CLIA# [id number]). [facility], [address], [facility] [place] [address] (CLIA# [id number]). Diagnostician: Jairon Matta MD PATIENT NAME: HERNAN GONSALES PATHOLOGY DATE OF : 76 REPORT #: [id number] PHYSICIAN: [facility] PATHOLOGY PCP: MICK JEFFERSON MD REPORT IS CONFIDENTIAL AND NOT TO BE RELEASED WITHOUT AUTHORIZATION [address] [place], [place] [address] Signed Pathologist Electronically Signed 10/14/2022 Copies: ~ PATIENT NAME: HERNAN GONSALES PATHOLOGY DATE OF : 76 REPORT #: [id number] PHYSICIAN: CORDELIA PATHOLOGY PCP: MICK JEFFERSON MD REPORT IS CONFIDENTIAL AND NOT TO BE RELEASED WITHOUT AUTHORIZATION
--- NOTE | 2022-10-14 19:00 | NUR ---
REPORT RECEIVED FROM YIFAN MOONEY. PT SITTING ON COUCH LOOKING OUT WINDOW. PT AMBULATES TO BED WITH STEADY GAIT. PT REPORTS NO NEEDS AT THIS TIME. CALL LIGHT IN REACH.
--- NOTE | 2022-10-14 21:38 | NUR ---
IN TO ROUND ON PT. PT LAYING IN BED ON LEFT SIDE RR EVEN AND UNLABRED. PT AWAKENS WHEN ADDRESSED. ASSESSMENT COMPLETE. LUNG SOUNDS CLEAR. BOWEL TONES ACTIVE. SLIGHT TREMMORS NOTED WHEN PT HOLDS BILATERAL ARMS OUT. PT DENIES N/V, SIMEON, AUDITORY OR VISUAL DISTRUBANCES. PT REPORTS PAIN 8/10 ON RIGHT SIDE OF BACK. I&Os COMPLETE. PT DENIES ANY OTHER NEEDS AT THIS TIME. CALL LIGHT IN REACH.
--- NOTE | 2022-10-14 22:49 | NUR ---
IN TO ROUND ON PT. PT LAYING IN BED WITH EYES CLOSED. RR EVEN AND UNLABORED. NO NEEDS IDENTIFIED AT THIS TIME. CALL LIGHT IN REACH.
--- NOTE | 2022-10-15 00:10 | NUR ---
IN TO ROUND ON PT. PT MOVING AROUND IN BED AND LAYING ON LEFT SIDE. PT DENIES ANY NEEDS AT THIS TIME. CALL LIGHT IN REACH.
--- NOTE | 2022-10-15 01:27 | NUR ---
IN TO ROUND ON PT. PT RESTING COMFORTABLY ON BACK. RR EVEN AND UNLABORED. NO VISUAL SWEATING NOTED. NO TREMORS NOTED. NO NEEDS IDENTIFIED AT THIS TIME. CALL LIGHT IN REACH.
--- NOTE | 2022-10-15 02:11 | NUR ---
IN TO ROUND ON PT. PT RESTING ON LEFT SIDE WITH EYES CLOSED. RR EVEN AND UNLABORED. NO SWEATING OR TREMORS NOTED. NO NEEDS IDENTIFIED AT THIS TIME. CALL LIGHT IN REACH.
--- NOTE | 2022-10-15 03:35 | NUR ---
IN TO ROUND ON PT. PT LAYING ON RIGHT SIDE. RR EVEN AND UNLABORED. NO NEEDS IDENTIFIED AT THIS TIME. CALL LIGHT IN REACH.
--- NOTE | 2022-10-15 04:50 | NUR ---
IN WITH YIFAN BENTLEY. VITALS AND I&Os COMPLETE. ASSESSMENT COMPLETE. LUNG SOUNDS CLEAR. BOWEL TONES ACTIVE. PT DENIES PAIN AT THIS TIME. PT A&O TO SELF, PLACE, DATE, MONTH, YEAR. PT DENIES TOILETING NEEDS AT THIS TIME. PT DENIES ANY OTHER NEEDS. CALL LIGHT IN REACH.
--- NOTE | 2022-10-15 05:52 | NUR ---
IN TO ANSWER CALL LIGHT. PT REPORTING PAIN 6/10 ON RIGHT SIDE OF BACK. PRN PAIN MEDICATION ADMINISTERED, SEE MAR. PT TAKES PO MEDICATION WITH NO ISSUES. ICE WATER PROVIDED. PT REPORTS NO OTHER NEEDS AT THIS TIME. CALL LIGHT IN REACH.
--- NOTE | 2022-10-15 07:20 | NUR ---
report from hossein quintanilla, pt resting in bed eyes closed, resp even. call light in reach.
--- NOTE | 2022-10-15 08:13 | NUR ---
MORNING ASSESSMENT COMPLETE. PATIENT REPORTS PAIN LEVEL 8/10 ON RIGHT ABDOMINAL AND FLANK. DENIES ANY NUMBNESS OR TINGLING. PT SITTING UPRIGHT AND IS PLEASENT TO SPEAK WITH. DENIES AND FURTHER NEEDS AT THIS TIME. CALL LIGHT WITHIN REACH.
--- NOTE | 2022-10-15 08:38 | NUR ---
PATIENT RATED PAIN AT 8/10. NEURONTIN WAS GIVEN AND DILAUDID HELD UNTIL NEXT ADMINISTRATION AT 10AM. OFFERED TO LET PROVIDER KNOW OF PAIN LEVEL BUT PATIENT DECLINED ANY FURTHER INTERVENTION. PATIENT IS SITTING UPRIGHT IN CHAIR EATING BREAKFAST. DECLINES ANY FURTHER NEEDS AT THIS TIME.
--- NOTE | 2022-10-15 10:01 | NUR ---
AFTER ASSESSMENT, PT ANXIOUS WITH ETOH WITHDRAWL - EDUCATED PT ON BETTER NUTRITION AND ETOH - DISCUSSED PT WITH DR LEVIN - NOW IN ROOM WITH RN AND PT, PLAN OF CARE AND DC DISCUSSED. EDUCATED PT ON MEDICATIONS AND REFERRALS.
[2022-10-15] MEDS ORDERED: HYDROMORPHONE HC2 MG PO (10:11)
[2022-10-15] MEDS ORDERED: LORAZEPAM1 MG PO (10:12)
[2022-10-15] MEDS ORDERED: GABAPENTIN300 MG PO (10:12)
[2022-10-15] MEDS ORDERED: MULTI VITAMIN1 EACH PO (10:43)
[2022-10-15] MEDS ORDERED: VITAMIN B-1100 M1 PO (10:44)
[2022-10-15] MEDS ORDERED: MAGOX 400400 MG PO (10:44)
[2022-10-15] MEDS ORDERED: PRILOSEC OTC20 MG PO (10:49)
== END 2022-10-15 11:25 | disposition home or self-care (01) | DRG 434 ==
LOC: ED 13:53 → MS 13:54 → CCU 13:54 → MS 13:54 → CCU 20:37 → MS 10-13 07:55
PROVIDERS: ADMIT Surgery; ATTEND Internal Medicine
PROC: HZ2ZZZZ Detoxification Services for Substance Abuse Treatment (ICD-10-PCS; 2022-10-10)
PROC: 0DB78ZX Excision of Stomach, Pylorus, Via Natural or Artificial Opening Endoscopic, Diagnostic (ICD-10-PCS; principal; 2022-10-11 15:00)
DX: K70.10 Alcoholic hepatitis without ascites (principal); Z20.822 Contact with and (suspected) exposure to COVID-19; K21.9 Gastro-esophageal reflux disease without esophagitis; K76.0 Fatty (change of) liver, not elsewhere classified; F10.229 Alcohol dependence with intoxication, unspecified; E83.42 Hypomagnesemia; E87.6 Hypokalemia; F43.20 Adjustment disorder, unspecified; F32.A Depression, unspecified; F41.9 Anxiety disorder, unspecified; F17.200 Nicotine dependence, unspecified, uncomplicated; K29.20 Alcoholic gastritis without bleeding; K82.8 Other specified diseases of gallbladder; R97.0 Elevated carcinoembryonic antigen [CEA]; Z90.89 Acquired absence of other organs; Z98.890 Other specified postprocedural states; Z79.899 Other long term (current) drug therapy
CPT/HCPCS: 00731; 36415; 74177; 74183; 76705; 78227; 80048; 80053; 80074; 80076; 81001; 81003; 82140; 82248; 83690; 83735; 84100; 85025; 85610; 86301; 93005; 93010; 96361; 96374; 96375; 99285-25; A9537; A9579; C9803; G0480; J0330; J0690; J1170; J2060; J2270; J2704; J2805; J3360; J3411; J3480; J7030; J7060; J7121; Q9967; U0003